=== PATIENT | female | born 1960 | race Caucasian/White ===

== ENCOUNTER → 2017-05-03 | Outpatient (CLI) | payer OTHER ==
[~2017-05-03] MED LIST: ASPIRIN EC81 M1 PO; JUNEL FE 1-201 EACH PO; LEVOTHYROXINE100 MC1; SUPER B COMPLE150 MG
--- NOTE | 2017-05-03 15:50 | EXE ---
[place] [address] STRESS ECHOCARDIOGRAM Name: KELLI FONSECA Room: [facility]#: [id number] Admission: 05/03/17 Attend Phys: Dharmesh Rolle, Discharge: Date of : 62 Date of Service: 05/03/17 1550 Report #: [id number] THIS REPORT FOR: //name// APPROVED REPORT Exam: Stress Echocardiogram Indication: Abnormal EKG, Dizziness Patient Location: Out-Patient Stress Nurse: Dali Hogan RN Supervising Physician: Link Sin MD Status: routine Ht: 5 ft 9 in HR: 79 bpm BP: 147/92 mmHg Rhythm: NSR Medical History Cardiac Risk Factors: FHX of CAD Procedure The patient underwent an Exercise Stress Test using the Ashvin Protocol. Blood pressure, heart rate, and EKG were monitored. An Echocardiogram was performed by master certified rv technician in four stages in quad fashion. At peak stress, four selected images were obtained and placed side by side with resting images for comparison. Stress Test Details Stress Test: Exercise stress testing was performed using a Ashvin protocol. HR Resting HR: 79 bpm Max Heart Rate (APMHR): 164 bpm Max HR Achieved: 164 bpm Target HR (85% APMHR): 139 bpm % of APMHR: 100 Recovery HR: 85 bpm HR response to stress: Normal HR response to stress BP Resting BP: 147/92 mmHg Max BP: 199/101 mmHg Recovery BP: 130/100 mmHg ECG Resting ECG: Sinus Rhythm, NSSTT changes Stress ECG: Sinus Rhythm, NSSTT changes ST Change: [place] [address] STRESS ECHOCARDIOGRAM Name: KELLI FONSECA Room: [facility]#: [id number] Admission: 05/03/17 Attend Phys: Dharmesh Rolle, Discharge: Date of : 62 Date of Service: 05/03/17 1550 Report #: [id number] Arrhythmia: None Recovery ECG: Sinus Rhythm, NSSTT changes Recovery ST Change: none Recovery Arrhythmia: None Clinical Reason for Termination: Maximal effort, Completed protocol Exercise duration: 5 min 15 sec Highest Stage Achieved: Stage 2: 2.5 mph at 12% grade. Exercise capacity: 7.05 METs The patient had no significant symptoms with standard Ashvin protocol exercise stress. Exercise was discontinued due to dyspnea and fatigue. Stress ECG Conclusion The baseline 12-lead elect cardiac exam shows sinus rhythm with 1-1/2-[address] segment depression diffusely. EKGs obtained during and post exercise showed sinus rhythm and sinus tachycardia with continued ST segment depression that did not change significantly from resting images. There were no stress-induced arrhythmias. Pre-Stress Echo The resting Echocardiogram showed normal left ventricular contractility with an estimated Ejection Fraction of about 55-60%. Post-Stress Echo The stress Echocardiogram showed abnormal left ventricular contractility with an estimated Ejection Fraction of about 55-60%. Left ventricular systolic function did not appear to augment normally with exercise stress. There appeared to be a distal septal wall motion abnormality. No other significant stress-induced abnormalities noted. Conclusion Clinical Response: Equivocal Exercise Capacity: Fair Stress ECG Response: Indeterminant Stress Echo Images: Ischemic Baseline echocardiographic images were not significantly remarkable. With exercise stress there did not appear to be normal augmentation of left ventricular systolic function. Additionally there appeared to be a distal septal wall motion abnormality possibly consistent with stress-induced ischemia. The patient had symptoms of dyspnea and fatigue without chest pain. I would consider this a [place] [address] STRESS ECHOCARDIOGRAM Name: KELLI FONSECA Room: [facility]#: [id number] Admission: 05/03/17 Attend Phys: Dharmesh Rolle, Discharge: Date of : 62 Date of Service: 05/03/17 1550 Report #: [id number] No prior study available for comparison. Other Information Study Quality: Good <Conclusion> Baseline echocardiographic images were not significantly remarkable. With exercise stress there did not appear to be normal augmentation of left ventricular systolic function. Additionally there appeared to be a distal septal wall motion abnormality possibly consistent with stress-induced ischemia. The patient had symptoms of dyspnea and fatigue without chest pain. I would consider this a moderate risk study. <ELECTRONICALLY SIGNED> By: Link Sin MD, FACC 05/03/17 1550 1550 1550 Link Sin MD, FACC /INF
== END ==
LOC: M.CRD 10:27
DX: R94.31 Abnormal electrocardiogram [ECG] [EKG] (principal); R42 Dizziness and giddiness; R55 Syncope and collapse

== ENCOUNTER → 2017-05-31 | Outpatient (CLI) | payer OTHER ==
[~2017-05-31] VITALS: Ht 175.3 cm; Wt 72.6 kg
[2017-05-31 09:46] LABS: HEMOGLOBIN 13.7 gm/dL (12.0-15.0); MCH 30.8 pg (26.0-34.0); MCHC 33.4 g/dL (28.0-37.0); MCV 92.1 fL (80.0-100.0); MPV 8.3 fl. (7.2-11.1); RBC 4.45 mil/uL (4.20-5.00); RDW-CV 13.9 % (10.5-14.5); WBC 5.5 thou/uL (4.0-11.0)
[2017-05-31 09:58] LABS: ANION GAP 10 mmol/L (7-16); APTT 28.2 Seconds (25.0-31.3); BUN 8 mg/dL (7-18); CALCIUM 9.5 mg/dL (8.5-10.1); CHLORIDE 101 mmol/L (98-107); CO2 27 mmol/L (21-32); CREATININE 0.8 mg/dL (0.6-1.3); GLUCOSE 111 mg/dL (70-99); INR 1.1; POTASSIUM 3.6 mmol/L (3.5-5.1); PROTIME 10.4 Seconds (9.20-11.50); SODIUM 138 mmol/L (136-145)
[2017-05-31 10:03] LABS: ALBUMIN 4.1 g/dL (3.4-5.0); ALKALINE PHOSPHATASE 77 U/L (46-116); CHOLESTEROL 231 mg/dL (<200); HDL CHOLESTEROL 104 mg/dL (>40); LDL CHOLESTEROL 118 mg/dL (<100); SERUM ASSESSMENT Clear; SGOT 28 U/L (15-37); SGPT 38 U/L (30-65); TC:HDL 2.2 Ratio (Not establshd); TOTAL BILIRUBIN 0.5 mg/dL (<0.1-1.0); TOTAL PROTEIN 7.8 g/dL (6.4-8.2); TRIGLYCERIDE 48 mg/dL (<150); VLDL 10 mg/dL (<40)
[2017-05-31 10:38] VITALS: BP 142/85
--- NOTE | 2017-05-31 10:52 | EKG ---
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: [facility] : 1960 Requested By: Dharmesh Rolle Order Number: [id number] Reading MD: Dharmesh Rolle Measurements Intervals [place] Rate: 65 P: 44 NV: 155 QRS: 30 QRSD: 89 T: QT: 414 QTc: 431 Interpretive Statements Sinus rhythm Repol abnrm suggests ischemia, diffuse leads Compared to ECG 07/25/2011 09:08:50 Early repolarization now present Possible ischemia now present Sinus bradycardia no longer present ST (T wave) deviation no longer present Electronically Signed On 05-31-2017 10:51:59 CDT by Dharmesh Rolle [email or web address] <ELECTRONICALLY SIGNED> By: Dharmesh Rolle MD, FACC 05/31/17 1051 1016 1016 Dharmesh Rolle MD, FAC /EPI
--- NOTE | 2017-05-31 10:57 | H ---
[place] [address] HISTORY AND PHYSICAL Name: KELLI FONSECA Room: [facility]#: [id number] Admission: 05/31/17 Attend Phys: Dharmesh Rolle MD Discharge: Date of : 62 Report #: [id number] THIS REPORT FOR: //name// CC: Faina Rolle DATE OF SERVICE: 05/31/2017 PRIMARY CARE PHYSICIAN: Marsha Hopkins, nurse practitioner. INDICATION: Abnormal stress test, chest discomfort. HISTORY OF PRESENT ILLNESS: The patient is a 57-year-old woman with a history of cardiovascular risk factors, underwent a treadmill stress echo which revealed positive EKG changes as well as a septal defect with exercise. Her ejection fraction was normal on that stress study. She was originally evaluated for presyncope. She has been having some dizziness and lightheadedness. There is a strong family history of heart disease. FAMILY HISTORY: Father had bypass. PAST MEDICAL HISTORY: She has a history of hypothyroidism, postural dizziness. She does not have high blood pressure. She is not a diabetic. HOME MEDICATIONS: Include vitamins, Synthroid 100 mcg daily and baby aspirin was started. SOCIAL HISTORY: She is a nonsmoker. REVIEW OF SYSTEMS: GASTROINTESTINAL: No nausea or vomiting. RENAL: No history of kidney failure. NEUROLOGIC: Denies slurred speech, numbness or seizures. HEMATOLOGIC: No anemia or bleeding disorders. SKIN: No rashes. PHYSICAL EXAMINATION: VITAL SIGNS: Blood pressure 132/74, heart rate 66. BMI is 25. GENERAL: This is a pleasant adult woman in no apparent distress. NECK: Supple, no jugular venous distention. CARDIOVASCULAR: Regular. I cannot hear a murmur. LUNGS: Clear to auscultation. ABDOMEN: Soft, nontender. EXTREMITIES: [place] [address] HISTORY AND PHYSICAL Name: KELLI FONSECA Room: [facility]#: [id number] Admission: 05/31/17 Attend Phys: Dharmesh Rolle MD Discharge: Date of : 62 Report #: [id number] IMPRESSION: 1. Abnormal stress test. 2. Syncope. 3. Strong family history of heart disease. PLAN: Based on her EKG stress echo which showed positive ECG changes and a new wall motion abnormality, we have arranged for further evaluation given the concern for cardiovascular etiology of her syncope. Risks and benefits of the procedure described to patient in lay terms. The patient elects to proceed. <ELECTRONICALLY SIGNED> By: Dharmesh Rolle MD, FACC 05/31/17 1057 1321 1352Dharmesh Rolle MD, FACC /nt
[2017-05-31 11:52] VITALS: BP 114/73
[2017-05-31 12:10] VITALS: BP 120/69
[2017-05-31 13:45] VITALS: BP 104/65
--- NOTE | 2017-05-31 16:31 | CARD ---
[address] [address] CARDIAC CATH REPORT Name: KELLI FONSECA Room: [facility]#: [id number] Admission: 05/31/17 Attend Phys: Dharmesh Rolle MD Discharge: Date of : 62 Report #: [id number] THIS REPORT FOR: //name// APPROVED REPORT Study performed: 05/31/2017 10:41:02 Patient Details Patient Status: Out-Patient Room #: The patient is a 57 year-old female Event Personnel Dharmesh Rolle Section Weaver, Kaia Barahona RN, Kiley Hernández RTR Monitor, Greg Emerson (R) Scrub Procedures Performed Art Access - R radial artery Left Heart Cath w/LT VGram [id number] LHCLV Hemostasis with Hemoband Procedure Narrative A Slender Glidesheath sheath was inserted into the right radial artery. Coronary angiography was performed using coronary diagnostic catheters. The right coronary system was accessed and visualized with a DCR: Bixby 4.0 5fr catheter. The left coronary system was accessed and visualized with a DCR: Bixby 4.0 5fr catheter. The left ventricle was accessed and visualized with a PC: Angled Pig 5fr catheter. The patient tolerated the procedure well and there were no complications associated with the procedure. Intraoperative Conscious Sedation Sedation start time: 11:19 Case end Time: 11:36 Fentanyl 25 mcg Versed 2 mg Fluoro Time: 3.5 minutes Dose: DAP 78793 cGycm2 536.63 mGy Contrast Type and Amount: Omnipaque 175 ml Diagnostic Cath Left Main norm LAD normal prox,mid segments, apical 20-30% Diagonal 1 normal Diagonal 2 small focal 30% Circumflex proximal large ,normal,mid distal small normal OM1 [place] [address] CARDIAC CATH REPORT Name: KELLI FONSECA Room: [facility]#: [id number] Admission: 05/31/17 Attend Phys: Dharmesh Rolle MD Discharge: Date of : 62 Report #: [id number] Right Coronary normal R PDA normal RPLV normal Left Ventriculography The left ventricle is normal in size with normal contractility. The left ventricular ejection fraction is estimated to be 50-55%. Left ventricular wall motion abnormalities are not present. There is no mitral insufficiency. Hemodynamics The aortic pressure is 122/77 mmHg with a mean of 98 mmHg. The left ventricular pressure is 119/2 mmHg with a mean of mmHg. The left ventricular end diastolic pressure is 9 mmHg. Conclusion 1. mild CAD 2. normal LV function Recommendations Medical Therapy <ELECTRONICALLY SIGNED> By: Dharmesh Rolle MD, [facility] 05/31/17 1631 1631 1631Dharmesh Rolle MD, FACC /INF
== END | disposition home or self-care (01) ==
LOC: M.CL 09:03
PROVIDERS: Internal Medicine Cardiovascular Disease
DX: I25.10 Atherosclerotic heart disease of native coronary artery without angina pectoris (principal); E03.9 Hypothyroidism, unspecified; Z79.899 Other long term (current) drug therapy; Z98.2 Presence of cerebrospinal fluid drainage device; Z79.01 Long term (current) use of anticoagulants